=== PATIENT | female | born 1995 | race Caucasian/White ===

== ENCOUNTER 2019-07-31 13:32 | Emergency (ER) | payer OTHER, SELFPAY ==
[2019-07-31 13:32] VITALS: BP 109/65; PULSE 87; RESP 16; TEMP 36.1; O2SAT 98; BMI 22.7
--- NOTE | 2019-07-31 13:50 | ED.DCSUM_ITS ---
- ER Visit Summary Date of Service: 07/31/19 Chief Complaint: Fall History of Present Illness: The patient is a [address] Rojas. She reports that yesterday she slipped and fell hitting her head. No loss of consciousness. Is not on anticoagulants. She reports she has a headache that is 6 out of 10 with movement and she is pain-free currently. She denies any other injuries. No neck, back, wrist, shoulder, or hip pain. Tetanus is up-to-date. Physical Examination: Vitals: Stable. Afebrile. Head: 1 cm laceration in the midline of her forehead just inferior to her hairline. No active bleeding. This is not gaping. Neck: No vertebral tenderness. Full ROM without difficulty. Cleared by NEXUS criteria. Back: No vertebral tenderness. General: A&O x 3. NAD. Cardiovascular exam: Regular rate and rhythm, no murmur, rub or gallop. Respiratory exam: Chest nontender. No crepitus. Clear to auscultation bilaterally. No wheezes or stridor. Abdominal exam: Soft, nontender, nondistended, normal bowel sounds. No pain in RUQ or LUQ specifically. No peritoneal signs. Extremity: Atraumatic. No pain with range of motion. Emergency Department Course and Treatment: Patient reports that she is nauseated. She was given Zofran and Tylenol. Had a prolonged discussion with her. At this time imaging is not necessary. Treatment Plan: Patient be discharged with Zofran. Instructed to use Tylenol and/or ibuprofen for pain. Follow-up with her primary care physician 1 week for another exam. Return to the emergency department for any worsening symptoms. Disposition: To home in improved and stable condition. Impression: 1. Concussion. 2. Forehead laceration, 1 cm, not repaired. This note was generated with [employer] dictation software. It may contain incorrect words, spelling, and punctuation that were not noted in review of the chart prior to signing ED Disposition - Plan for ED Patient: Disposition: Home or Assisted Living Instructions: CONCUSSION, No Wake Up Prescriptions: Ondansetron [Zofran Odt] 4 mg PO Q8H PRN PRN #10 tab PRN Reason: Nausea Prescription Printed Referrals: Deni Rojas MD [Primary Care Provider] - 1 Week
[2019-07-31] MEDS: Ondansetron ODT 4 MG Tablet PO (13:58)
[2019-07-31] MEDS: Acetaminophen 325 MG Tablet 1000 MG PO (13:58)
== END 2019-07-31 14:03 | disposition home or self-care (01) ==
LOC: ED 13:55
PROVIDERS: Emergency Provider Emergency Medicine; PCP Family Medicine
DX: S06.0X0A Concussion without loss of consciousness, initial encounter (principal); S01.81XA Laceration without foreign body of other part of head, initial encounter; R40.2410 Glasgow coma scale score 13-15, unspecified time; R05 Cough; W01.0XXA Fall on same level from slipping, tripping and stumbling without subsequent striking against object, initial encounter; Y93.9 Activity, unspecified; Y92.9 Unspecified place or not applicable; F31.9 Bipolar disorder, unspecified; Z79.899 Other long term (current) drug therapy; F17.200 Nicotine dependence, unspecified, uncomplicated
CPT/HCPCS: 99283